=== PATIENT | male | born 1965 | race Caucasian/White ===

== ENCOUNTER 2018-12-18 14:22 | Outpatient (CLI) | payer BC | END 2018-12-18 23:59 | disposition home or self-care (01) | LOC: STAR 14:22 | PROVIDERS: ATTEND Surgery | DX: Z02.9 Encounter for administrative examinations, unspecified (principal) ==

== ENCOUNTER 2018-12-24 08:42 | Day surgery (SDC) | payer BC ==
[~2018-12-24] VITALS: Ht 182.9 cm; Wt 87.1 kg
[2018-12-24 09:01] VITALS: BP 109/69
[2018-12-24] MEDS ORDERED: LACTATED RINGERS 1,000 ML IV SCH ×2 (09:06→12:04)
[2018-12-24] MEDS ORDERED: ACETAMINOPHEN 500 MG TABLET PO ONE (09:30)
[2018-12-24] MEDS ORDERED: GABAPENTIN 300 MG CAPSULE PO ONE (09:30)
[2018-12-24] MEDS ORDERED: FENTANYL PF 250 MCG/5ML ONE (10:15)
[2018-12-24] MEDS ORDERED: MIDAZOLAM 1 MG/ML, 2ML ONE (10:15)
[2018-12-24] MEDS ORDERED: BUPIVACAINE/EPI 0.5% 1:200K ONE (10:24)
[2018-12-24] MEDS ORDERED: PROMETHAZINE 25 MG SUPP PR PRN (10:30)
[2018-12-24] MEDS ORDERED: HYDROmorphone 2 MG/ML, 1ML IVPush PRN (10:30)
[2018-12-24] MEDS ORDERED: OXYcodone 5 MG/5 ML ORAL.SOL UDC PO PRN ×2 (10:30→12:30)
[2018-12-24] MEDS ORDERED: MEPERIDINE/PF 25MG/0.5ML IVPush PRN (10:30)
[2018-12-24] MEDS ORDERED: PROMETHAZINE 25 MG/ML, 1ML IM PRN ×2 (10:30)
[2018-12-24] MEDS ORDERED: MORPHINE SULFATE 4 MG/ML, 1ML IVPush PRN (10:30)
[2018-12-24] MEDS ORDERED: hydrALAzine 20 MG/ML, 1ML IV PRN (10:30)
[2018-12-24] MEDS ORDERED: PROMETHAZINE 12.5 MG SUPP PR PRN (10:30)
[2018-12-24] MEDS ORDERED: ONDANSETRON ODT 8 MG PO PRN (10:30)
[2018-12-24] MEDS ORDERED: LABETALOL 5MG/ML, 20ML IV PRN (10:30)
[2018-12-24] MEDS ORDERED: ONDANSETRON 2MG/ML, 2ML IV PRN (10:30)
[2018-12-24] MEDS ORDERED: PROMETHAZINE 25 MG/ML, 1ML IV PRN (10:30)
[2018-12-24] MEDS ORDERED: CEFAZOLIN 1,000 MG ONE (11:28)
[2018-12-24] MEDS ORDERED: GLYCOPYRROLATE 0.2MG/1ML, 5ML ONE (11:28)
[2018-12-24] MEDS ORDERED: PROPOFOL 10 MG/ML, 20ML ONE (11:28)
[2018-12-24] MEDS ORDERED: NEOSTIGMINE 1 MG/ML, 10ML ONE (11:28)
[2018-12-24] MEDS ORDERED: ROCURONIUM 10MG/ML,5ML ONE (11:28)
[2018-12-24] MEDS ORDERED: FENTANYL PF 100 MCG/2ML ONE ×2 (11:29→12:09)
[2018-12-24] MEDS ORDERED: OXYcodone 5 MG/5 ML ORAL.SOL UDC ONE (12:10)
[2018-12-24] MEDS: FENTANYL PF 100 MCG/2ML IV PRN ×2 (12:15→12:20)
[2018-12-24] MEDS ORDERED: ONDANSETRON 2MG/ML, 2ML ONE (12:26)
[2018-12-24] MEDS ORDERED: ONDANSETRON 2MG/ML, 2ML IVPush PRN (12:30)
[2018-12-24] MEDS ORDERED: morphine SULFATE 10 MG/ML, 1ML IVPush PRN (12:30)
[2018-12-24] MEDS ORDERED: IBUPROFEN 800 MG TABLET PO ONE (15:00)
== END 2018-12-24 15:35 | disposition home or self-care (01) ==
LOC: OUT 08:42
PROVIDERS: ATTEND Surgery
DX: K40.90 Unilateral inguinal hernia, without obstruction or gangrene, not specified as recurrent (principal); D17.6 Benign lipomatous neoplasm of spermatic cord; Z72.89 Other problems related to lifestyle; Z87.891 Personal history of nicotine dependence; Z82.3 Family history of stroke
CPT/HCPCS: 49650; C1727; C1781; J0690; J2250; J2405; J2704; J2710; J3010; J7120